=== PATIENT | female | born 1975 | race African-American/Black ===

== ENCOUNTER 2017-03-21 02:24 | Emergency (ER) | payer BC, OTHER ==
[~2017-03-21] VITALS: Ht 182.9 cm; Wt 127.0 kg
--- NOTE | ~2017-03-21 | CR72 ---
[facility] A Service of [facility] RADIOLOGY TEXT RESULTS PATIENT: LEVAR BARBOZA LOCATION: [facility] : 77 UNIT #: [id number] AGE: [address]: Narendra Guzman MD SEX: F ORDER DR: [id number] [facility] [address]. [place], [place] [address] [id number] E MR#: [id number] Acc #: [id number] NAME: LEVAR BARBOZA : 1975 SEX: F STUDY DATE/TIME: 03/21/2017 3:30 UNIT: [facility] ROOM: STUDY DESCRIPTION: CR Chest Single View Portable Attending Physician: Narendra Guzman M.D. Ordering Physician: Shreyas Sen M.D. Primary Care Physician: No Primary Care Physician MEDICAL IMAGING REPORT This report is preliminary unless electronic signature is present EXAM Portable chest INDICATIONS Chest pain, shortness of air today. PROCEDURE Frontal view chest. 05/01/2014 FINDINGS Heart size unchanged. No dense consolidation pleural fluid or pneumothorax. IMPRESSION No active process. Dictated by... Sid Pacheco M.D. THIS IS AN ELECTRONICALLY VERIFIED REPORT Sid Pacheco M.D. at 03/21/2017 10:25 PM PANKAJ/tran TD: 03/21/2017 09:50 JOB #: [id number] MEDICAL IMAGING REPORT Page 1 of 1 COPY
--- NOTE | ~2017-03-21 | EKG ---
PATIENT: LEVAR BARBOZA UNIT #: [id number] Ventricular Rate: 89 BPM Atrial Rate: 89 BPM P-R Interval: 158 ms QRS Duration: 74 ms Q-T Interval: 334 ms QTC Calculation(Bezet): 406 ms P [place]: 39 degrees Calculated R [place]: 76 degrees Calculated T [place]: 4 degrees Diagnosis Line: Normal sinus rhythm Diagnosis Line: Possible Left atrial enlargement Diagnosis Line: Septal infarct , age undetermined Diagnosis Line: Abnormal ECG Diagnosis Line: No previous ECGs available Diagnosis Line: Confirmed by NATE SULLIVAN MD ([id number]) on Diagnosis Line: 03/21/2017 5:43:00 PM INTERPRETING MD: NATE ALVAREZ
[~2017-03-21 02:24] MED LIST: BENTYL20 MG DOB; ORUDIS75 M1 PO; PHENERGAN25 M1 PO; PREVACID15 M1 PO; TYLOX1 CAP 5/50 DOB
[2017-03-21 06:25] LABS: BASOPHIL# 0.1 X10e3 (0-0.3); BASOPHIL% 0.4 % (0-2.5); EOSINOPHIL% 0.1 % (0.0-7.0); HEMATOCRIT 40.6 % (35.0-45.0); HEMOGLOBIN 13.2 gm/dL (12.0-16.0); LYMPHOCYTE# 1.5 X10e3 (1.0-3.5); LYMPHOCYTE% 7.1 % (17.0-45.0); MEAN CELL VOLUME 97.9 FL (83-96); MEAN CORPUSCULAR HGB CONC 32.6 g/dL (30-36); MEAN PLATELET VOLUME 9.1 FL (6.5-11.5); MONOCYTE# 1.3 X10e3 (0-1.0); MONOCYTE% 6.1 % (3.0-12.0); NEUTROPHIL# 18.3 X10e3 (1.5-7.1); NEUTROPHIL% 86.3 % (40-75); PLATELET COUNT 284 X10e3 (140-420); RED BLOOD COUNT 4.15 X10e (3.90-5.30); WHITE BLOOD COUNT 21.2 X10e3 (4.0-10.5)
[2017-03-21 06:29] LABS: DIFF IND YES
[2017-03-21 06:41] LABS: ALBUMIN SERUM 4.1 g/dL (3.5-5.0); BILIRUBIN, DIRECT 0.2 mg/dL (0.0-0.2); BILIRUBIN,INDIRECT 0.5 mg/dL (0.0-0.9); BILIRUBIN,TOTAL 0.7 mg/dL (0.2-2.0); CALCIUM SERUM 9.1 mg/dL (8.4-10.2); CREATININE SERUM 0.9 mg/dL (0.6-1.4); GLOM FILT RATE Estimated 92.8 mL/min (>60); POTASSIUM 3.3 mmol/L (3.5-5.1); PROTEIN TOTAL SERUM 7.7 g/dL (6.0-8.3)
[2017-03-21 07:46] LABS: PLATELET ESTIMATE NORMAL (NORMAL)
[2017-03-21 07:48] LABS: RBC NORMAL YES
[2017-03-21 09:20] LABS: URINE SOURCE CLEAN CATCH
[2017-03-21 09:25] LABS: URINE APPEARANCE CLEAR; URINE BILIRUBIN NEG (NEG); URINE BLOOD NEG (NEG); URINE COLOR YELLOW; URINE GLUCOSE NEG (NEG); URINE KETONE NEG (NEG); URINE LEUKOCYTE ESTERASE TRACE (NEG); URINE NITRATE NEG (NEG); URINE PH 5.5 (5-8); URINE PROTEIN NEG (NEG); URINE SPECIFIC GRAVITY 1.015 (1.003-1.035); URINE UROBILINOGEN 0.2 MG/DL (NEG)
[2017-03-21 09:28] LABS: CULTURE INDICATED? YES; URBCS1 AUWI 0-2 /[HPF] (0-2); URINE BACTERIA AUWI 1+ (NEGATIVE); URINE SQUAMOUS EPITHELIAL CELL OCC /[HPF]
== END 2017-03-21 11:11 | disposition home or self-care (01) ==
LOC: CED 02:24
PROVIDERS: Emergency Medicine
DX: R55 Syncope and collapse (principal); F17.200 Nicotine dependence, unspecified, uncomplicated; Z98.51 Tubal ligation status; Z90.49 Acquired absence of other specified parts of digestive tract; Z90.710 Acquired absence of both cervix and uterus
CPT/HCPCS: 36415; 71010; 80048; 80076; 81003; 84703; 85025; 87086; 93005; 96361; 96374; 96375; 99284; J1200; J2765